=== PATIENT | female | born 1945 | race Caucasian/White ===

== ENCOUNTER 2017-09-15 17:11 | Inpatient (IN) ==
[2017-09-15] MEDS ORDERED: methylPREDNISolone SOD SUC 125 MG/2 ML VIAL IV STA (17:51)
[2017-09-15] MEDS ORDERED: MAGNESIUM SULF RIDER 2 GM in PREMIX 1 EACH IV STA (17:51)
[2017-09-15 18:08] LABS: Lactic Acid 1.2 MMOL/L (0.4-2.0)
[2017-09-15] MEDS ORDERED: FUROSEMIDE 100 MG/10 ML VIAL IV STA (18:08)
[2017-09-15 18:13] LABS: Ammonia < 10 UMOL/L (11-32)
[2017-09-15 18:18] LABS: Basophils % 0.1 % (0.0-0.8); Eosinophils % 0.1 % (0.00-10.9); Hematocrit 37.8 VOL% (35.7-47.0); Hemoglobin 12.5 GM/DL (12.0-16.0); Immature Granulocytes % 0.5 %; Immature Granulocytes Absolute 0.05 #; Lymphocytes # 0.3 10*3/uL (1.4-4.0); Lymphocytes % 3.6 % (21.3-54.2); Mean Corpuscular HGB Conc 33.1 GM/DL (32-36); Mean Corpuscular Hemoglobin 32 PG (27-34); Mean Corpuscular Volume 96.9 FL (87-102); Mean Platelet Volume 11.3 FL (9.6-12.0); Monocytes # 0.4 10*3/uL (0.11-0.8); Monocytes % 3.8 % (1.7-12.7); Neutrophils # 8.7 10*3/uL (1.4-7.4); Neutrophils % 91.9 % (38.7-73.9); Platelet Count 215 T/CUMM (130-400); Red Cell Distribution Width 13.3 % (9.3-17.3); White Blood Count 9.5 T/CUMM (4-12)
[2017-09-15] MEDS: ALBUTEROL/IPRATROPIUM 3 ML NEB RESP TX SCH (18:26)
[2017-09-15 18:32] LABS: INR 0.9
[2017-09-15 18:35] LABS: Alanine Aminotransferase 33 U/L (13-56); Albumin 3.1 G/DL (3.4-5.0); Alkaline Phosphatase 123 U/L (45-117); Aspartate Amino Transferase 38 U/L (0-37); Blood Urea Nitrogen 63 MG/DL (7-18); Calcium 8.8 MG/DL (8.5-10.1); Glucose 124 MG/DL (74-106); Osmolality,Calculated 286.2 MOS/KG (273-304); Sodium 134 MMOL/L (136-145); Total Protein 7.3 G/DL (6.4-8.3); Troponin I Only < 0.015 NG/ML (0.00-0.045)
[2017-09-15 18:37] LABS: ABG Base Excess -5.9 MMOL/L (-2.5-2.5); ABG HCO3 19.6 MMOL/L (20-26); ABG Oxygen Saturation 95.8 % (95-100); ABG PH 7.337 (7.35-7.45); ABG PO2 79.5 MM HG (80-95); ABG TCO2 17.2 MMOL/L (23-27); Allen Test Positive
[2017-09-15 18:42] LABS: Potassium 7.1 MMOL/L (3.5-5.1)
[2017-09-15 19:01] LABS: Apearance,Urine CLEAR (Clear); Bilirubin,Urine Negative (Negative); Blood, Urine Negative (Negative); Glucose,Urine (UA) Negative (Negative); Ketones,Urine Negative (Negative); Mucus,Urine Occasional /LPF (Occasional); Nitrite,Urine Negative (Negative); Protein,Urine 30 MG/DL; RBC,Urine 2 /HPF (0-4); Squamous Epithelial Cell,Urine Occasional /HPF (0-10); Urine Color Straw (Yellow); Urine Specific Gravity 1.006 (1.001-1.035); Urine Urobilinogen < 2.0 EU/DL (0.2-1.0); WBC,Urine 12 /HPF (0-6)
[2017-09-15 19:07] LABS: Lymphocytes 3 % (20-55); Platelet Estimate Normal; Segmented Neutrophils 95 % (50-85); Total Cells Counted 100
[2017-09-15] MEDS ORDERED: NITROGLYCERIN DRIP 50 MG/250 ML BOTTLE IV PRN (22:27)
[2017-09-15] MEDS ORDERED: SODIUM POLYSTYRENE SULFATE 15 GM/60 ML BOTTLE RECTAL ONE (22:27)
[2017-09-15] MEDS ORDERED: ONDANSETRON 4 MG/2 ML VIAL IV PRN (22:27)
[2017-09-15] MEDS ORDERED: PROMETHAZINE 25 MG/1 ML VIAL IM PRN (22:27)
[2017-09-15] MEDS ORDERED: CALCIUM GLUCONATE 1,000 MG in SODIUM CHLORIDE 0.9% 100 ML IV ONE (23:28)
[2017-09-15] MEDS ORDERED: DEXTROSE 50% 25 GM/50 ML VIAL IV PRN (23:35)
[2017-09-15] MEDS ORDERED: GLUCAGON 1 MG VIAL IM PRN (23:35)
[2017-09-15] MEDS: DOCUSATE SODIUM 100 MG CAPSULE PO SCH (23:40)
[2017-09-15] MEDS: cefTRIAXone 1,000 MG in SYRINGE 1 EACH IV SCH (23:41)
[2017-09-15] MEDS: ENOXAPARIN 30 MG/0.3 ML SYRINGE SUBCUT SCH (23:41)
[2017-09-16] MEDS ORDERED: METOPROLOL TARTRATE 5 MG/5 ML VIAL IV SCH
[2017-09-16] MEDS: MORPHINE 4 MG/1 ML VIAL IV PRN (03:00)
[2017-09-16 04:46] LABS: Allen Test Positive; Pt O2 Delivery Device BIPAP
[2017-09-16 04:47] LABS: ABG Base Excess -5.4 MMOL/L (-2.5-2.5); ABG HCO3 18.7 MMOL/L (20-26); ABG Oxygen Saturation 95.4 % (95-100); ABG PH 7.385 (7.35-7.45); ABG PO2 81.4 MM HG (80-95); ABG TCO2 19.7 MMOL/L (23-27)
[2017-09-16 06:04] LABS: Calcium 8.7 MG/DL (8.5-10.1); Osmolality,Calculated 303.5 MOS/KG (273-304); Risk Ratio 2.91; VLDL CHOLESTEROL 11.4 MG/DL
[2017-09-16 06:07] LABS: Potassium 6.6 MMOL/L (3.5-5.1)
[2017-09-16] MEDS ORDERED: SODIUM POLYSTYRENE SULFATE 15 GM/60 ML BOTTLE PO ONE (06:28)
[2017-09-16] MEDS: INSULIN REGULAR 100 UNIT/ML SUBCUT SCH ×4 (07:50→22:31)
[2017-09-16] MEDS ORDERED: FUROSEMIDE 40 MG/4 ML VIAL IV SCH (08:00)
[2017-09-16] MEDS ORDERED: SODIUM BICARBONATE 50 MEQ/50 ML SYRINGE IV ONE (08:43)
[2017-09-16] MEDS: DOCUSATE SODIUM 100 MG CAPSULE PO SCH ×2 (09:10→21:12)
[2017-09-16] MEDS: METOPROLOL TARTRATE 100 MG TABLET PO SCH ×2 (09:10→21:12)
[2017-09-16] MEDS: PANTOPRAZOLE 40 MG VIAL IV SCH (09:17)
[2017-09-16] MEDS: cefTRIAXone 1,000 MG in SYRINGE 1 EACH IV SCH ×2 (11:40→21:54)
[2017-09-16 12:28] LABS: ABG Base Excess -4.2 MMOL/L (-2.5-2.5); ABG HCO3 20.9 MMOL/L (20-26); ABG Oxygen Saturation 97.1 % (95-100); ABG PCO2 31.5 MM HG (35-48); ABG PH 7.403 (7.35-7.45); ABG PO2 87.6 MM HG (80-95); ABG TCO2 17.6 MMOL/L (23-27)
[2017-09-16] MEDS: SODIUM CHLORIDE 0.9% 1,000 ML IV SCH ×3 (14:30→22:00)
[2017-09-16] MEDS: methylPREDNISolone SOD SUC 40 MG/1 ML VIAL IV SCH (15:55)
[2017-09-16] MEDS: SODIUM BICARBONATE 650 MG TABLET PO SCH ×2 (16:00→21:12)
[2017-09-16] MEDS: METOPROLOL TARTRATE 5 MG/5 ML VIAL IV PRN (17:37)
[2017-09-16] MEDS: ALBUTEROL/IPRATROPIUM 3 ML NEB RESP TX SCH (19:35)
[2017-09-16] MEDS: ENOXAPARIN 30 MG/0.3 ML SYRINGE SUBCUT SCH (21:12)
[2017-09-17] MEDS: ALBUTEROL/IPRATROPIUM 3 ML NEB RESP TX SCH ×4 (01:04→19:36)
[2017-09-17] MEDS: methylPREDNISolone SOD SUC 40 MG/1 ML VIAL IV SCH ×2 (03:30→14:01)
[2017-09-17] MEDS: SODIUM CHLORIDE 0.9% 1,000 ML IV SCH ×5 (04:19→23:10)
[2017-09-17 04:58] LABS: Basophils % 0.1 % (0.0-0.8); Hematocrit 32.2 VOL% (35.7-47.0); Hemoglobin 10.7 GM/DL (12.0-16.0); Immature Granulocytes % 0.4 %; Immature Granulocytes Absolute 0.04 #; Lymphocytes # 0.6 10*3/uL (1.4-4.0); Lymphocytes % 5.5 % (21.3-54.2); Mean Corpuscular HGB Conc 33.2 GM/DL (32-36); Mean Corpuscular Hemoglobin 31 PG (27-34); Mean Corpuscular Volume 94.2 FL (87-102); Mean Platelet Volume 10.7 FL (9.6-12.0); Monocytes # 0.6 10*3/uL (0.11-0.8); Monocytes % 5.8 % (1.7-12.7); Neutrophils # 9.2 10*3/uL (1.4-7.4); Neutrophils % 88.2 % (38.7-73.9); Platelet Count 222 T/CUMM (130-400); Red Blood Count 3.42 MC/CUMM (3.8-5.5); Red Cell Distribution Width 13.4 % (9.3-17.3); White Blood Count 10.5 T/CUMM (4-12)
[2017-09-17 05:35] LABS: Calcium 7.2 MG/DL (8.5-10.1); Osmolality,Calculated 306.4 MOS/KG (273-304); Potassium 5.3 MMOL/L (3.5-5.1)
[2017-09-17] MEDS: INSULIN REGULAR 100 UNIT/ML SUBCUT SCH ×4 (07:33→20:43)
[2017-09-17] MEDS: METOPROLOL TARTRATE 100 MG TABLET PO SCH ×2 (08:41→20:48)
[2017-09-17] MEDS: PANTOPRAZOLE 40 MG VIAL IV SCH (08:41)
[2017-09-17] MEDS: SODIUM BICARBONATE 650 MG TABLET PO SCH ×3 (08:41→20:45)
[2017-09-17] MEDS: DOCUSATE SODIUM 100 MG CAPSULE PO SCH ×2 (08:41→20:45)
[2017-09-17] MEDS ORDERED: GLUCAGON 1 MG VIAL IM PRN (10:41)
[2017-09-17] MEDS ORDERED: DEXTROSE 50% 25 GM/50 ML VIAL IV PRN (10:41)
[2017-09-17] MEDS: cefTRIAXone 1,000 MG in SYRINGE 1 EACH IV SCH (10:55)
[2017-09-17] MEDS ORDERED: cefTRIAXone 1,000 MG in SYRINGE 1 EACH IV SCH (11:00)
[2017-09-17] MEDS: COLCHICINE 0.6 MG TABLET PO SCH (11:10)
[2017-09-17] MEDS: LORazepam 1 MG TABLET PO PRN ×2 (11:10→20:46)
[2017-09-17] MEDS: METOPROLOL TARTRATE 5 MG/5 ML VIAL IV PRN (12:32)
[2017-09-17] MEDS: ZIPRASIDONE 20 MG/1 ML VIAL IM PRN (15:25)
[2017-09-17] MEDS: ENOXAPARIN 30 MG/0.3 ML SYRINGE SUBCUT SCH (20:46)
[2017-09-17] MEDS: hydrALAZINE 25 MG TABLET PO SCH (20:46)
[2017-09-17] MEDS: BUDESONIDE/FORMOTEROL 160-4.5 INHALER 6 GM INH SCH (23:10)
[2017-09-18] MEDS: ALBUTEROL/IPRATROPIUM 3 ML NEB RESP TX SCH ×4 (00:34→19:46)
[2017-09-18] MEDS: methylPREDNISolone SOD SUC 40 MG/1 ML VIAL IV SCH ×2 (02:04→14:03)
[2017-09-18] MEDS: LORazepam 1 MG TABLET PO PRN ×3 (03:27→22:44)
[2017-09-18 04:42] LABS: Basophils % 0.1 % (0.0-0.8); Eosinophils % 0.2 % (0.00-10.9); Hemoglobin 11.7 GM/DL (12.0-16.0); Immature Granulocytes % 0.8 %; Immature Granulocytes Absolute 0.11 #; Lymphocytes # 0.2 10*3/uL (1.4-4.0); Lymphocytes % 1.2 % (21.3-54.2); Mean Corpuscular Hemoglobin 24 PG (27-34); Mean Corpuscular Volume 79.6 FL (87-102); Monocytes # 0.3 10*3/uL (0.11-0.8); Monocytes % 2.2 % (1.7-12.7); Neutrophils # 13.4 10*3/uL (1.4-7.4); Neutrophils % 95.5 % (38.7-73.9); Platelet Count 134 T/CUMM (130-400); Red Cell Distribution Width 20.3 % (9.3-17.3)
[2017-09-18 05:15] LABS: Calcium 7.7 MG/DL (8.5-10.1); Osmolality,Calculated 322.4 MOS/KG (273-304); Potassium 4.5 MMOL/L (3.5-5.1)
[2017-09-18 05:53] LABS: Lymphocytes 2 % (20-55); Segmented Neutrophils 96 % (50-85); Total Cells Counted 100
[2017-09-18 05:54] LABS: Hypochromasia 1+; Microcytosis 1+; Platelet Estimate Adequate
[2017-09-18] MEDS: INSULIN REGULAR 100 UNIT/ML SUBCUT SCH ×4 (08:07→20:33)
[2017-09-18] MEDS: DOCUSATE SODIUM 100 MG CAPSULE PO SCH ×2 (08:49→20:17)
[2017-09-18] MEDS: DIPHENOXYLATE/ATROPINE 2.5-0.025 MG TABLET PO SCH (08:50)
[2017-09-18] MEDS: COLCHICINE 0.6 MG TABLET PO SCH (08:50)
[2017-09-18] MEDS: PANTOPRAZOLE 40 MG VIAL IV SCH (08:50)
[2017-09-18] MEDS: ESCITALOPRAM 10 MG TABLET PO SCH (08:50)
[2017-09-18] MEDS: METOPROLOL TARTRATE 100 MG TABLET PO SCH (08:50)
[2017-09-18] MEDS: hydrALAZINE 25 MG TABLET PO SCH ×2 (08:50→20:18)
[2017-09-18] MEDS: SODIUM CHLORIDE 0.9% 1,000 ML IV SCH ×3 (08:52→14:06)
[2017-09-18] MEDS: SODIUM BICARBONATE 650 MG TABLET PO SCH ×3 (09:41→20:18)
[2017-09-18] MEDS: APIXABAN 2.5 MG TABLET PO SCH ×2 (10:39→20:18)
[2017-09-18] MEDS: BUDESONIDE/FORMOTEROL 160-4.5 INHALER 6 GM INH SCH ×2 (10:42→20:18)
[2017-09-18] MEDS: ZIPRASIDONE 20 MG/1 ML VIAL IM PRN (12:13)
[2017-09-19] MEDS: ALBUTEROL/IPRATROPIUM 3 ML NEB RESP TX SCH ×4 (00:06→19:23)
[2017-09-19] MEDS: methylPREDNISolone SOD SUC 40 MG/1 ML VIAL IV SCH (02:14)
[2017-09-19] MEDS ORDERED: ALBUTEROL 2.5 MG/3 ML NEB RESP TX PRN (02:54)
[2017-09-19] MEDS: SODIUM CHLORIDE 0.9% 1,000 ML IV SCH ×2 (03:04→06:40)
[2017-09-19] MEDS: MORPHINE 4 MG/1 ML VIAL IV PRN ×2 (03:54→18:44)
[2017-09-19 05:08] LABS: Basophils % 0.1 % (0.0-0.8); Hematocrit 36.8 VOL% (35.7-47.0); Hemoglobin 12.4 GM/DL (12.0-16.0); Immature Granulocytes % 1.6 %; Immature Granulocytes Absolute 0.14 #; Lymphocytes # 0.3 10*3/uL (1.4-4.0); Lymphocytes % 3.6 % (21.3-54.2); Mean Corpuscular HGB Conc 33.7 GM/DL (32-36); Mean Corpuscular Hemoglobin 32 PG (27-34); Mean Corpuscular Volume 95.8 FL (87-102); Mean Platelet Volume 10.7 FL (9.6-12.0); Monocytes % 11.6 % (1.7-12.7); Neutrophils # 7.4 10*3/uL (1.4-7.4); Neutrophils % 83.1 % (38.7-73.9); Platelet Count 240 T/CUMM (130-400); Red Blood Count 3.84 MC/CUMM (3.8-5.5); Red Cell Distribution Width 13.6 % (9.3-17.3); White Blood Count 8.9 T/CUMM (4-12)
[2017-09-19 05:36] LABS: Calcium 6.9 MG/DL (8.5-10.1); Osmolality,Calculated 319.1 MOS/KG (273-304); Potassium 5.4 MMOL/L (3.5-5.1)
[2017-09-19 05:41] LABS: Giant Platelets Few; Hypochromasia 1+; Lymphocytes 3 % (20-55); Microcytosis Slight; Platelet Estimate Adequate; Segmented Neutrophils 83 % (50-85); Total Cells Counted 100
[2017-09-19] MEDS: INSULIN REGULAR 100 UNIT/ML SUBCUT SCH ×4 (08:16→21:20)
[2017-09-19] MEDS: APIXABAN 2.5 MG TABLET PO SCH ×2 (08:36→21:21)
[2017-09-19] MEDS: hydrALAZINE 25 MG TABLET PO SCH ×3 (08:36→21:20)
[2017-09-19] MEDS: COLCHICINE 0.6 MG TABLET PO SCH (08:36)
[2017-09-19] MEDS: NEBIVOLOL 10 MG TABLET PO SCH (08:36)
[2017-09-19] MEDS: ESCITALOPRAM 10 MG TABLET PO SCH (08:36)
[2017-09-19] MEDS: DOCUSATE SODIUM 100 MG CAPSULE PO SCH ×2 (08:36→21:20)
[2017-09-19] MEDS: DIPHENOXYLATE/ATROPINE 2.5-0.025 MG TABLET PO SCH (08:37)
[2017-09-19] MEDS: ZIPRASIDONE 20 MG/1 ML VIAL IM PRN ×2 (08:37→21:10)
[2017-09-19] MEDS: PANTOPRAZOLE 40 MG VIAL IV SCH (08:37)
[2017-09-19] MEDS: SODIUM BICARBONATE 650 MG TABLET PO SCH ×3 (08:37→21:20)
[2017-09-19] MEDS: BUDESONIDE/FORMOTEROL 160-4.5 INHALER 6 GM INH SCH ×2 (08:39→21:20)
[2017-09-20] MEDS: ALBUTEROL/IPRATROPIUM 3 ML NEB RESP TX SCH ×2 (00:25→07:35)
[2017-09-20] MEDS: SODIUM CHLORIDE 0.9% 1,000 ML IV SCH ×3 (02:26→02:27)
[2017-09-20] MEDS ORDERED: FUROSEMIDE 40 MG/4 ML VIAL IV ONE (06:30)
[2017-09-20] MEDS: INSULIN REGULAR 100 UNIT/ML SUBCUT SCH ×2 (08:14→11:32)
[2017-09-20] MEDS ORDERED: methylPREDNISolone SOD SUC 40 MG/1 ML VIAL IV SCH (09:00)
[2017-09-20] MEDS: hydrALAZINE 25 MG TABLET PO SCH (09:07)
[2017-09-20] MEDS: SODIUM BICARBONATE 650 MG TABLET PO SCH (09:08)
[2017-09-20] MEDS: ESCITALOPRAM 10 MG TABLET PO SCH (09:08)
[2017-09-20] MEDS: DIPHENOXYLATE/ATROPINE 2.5-0.025 MG TABLET PO SCH (09:08)
[2017-09-20] MEDS: DOCUSATE SODIUM 100 MG CAPSULE PO SCH (09:08)
[2017-09-20] MEDS: NEBIVOLOL 10 MG TABLET PO SCH (09:08)
[2017-09-20] MEDS: COLCHICINE 0.6 MG TABLET PO SCH (09:08)
[2017-09-20] MEDS: APIXABAN 2.5 MG TABLET PO SCH (09:08)
[2017-09-20] MEDS: BUDESONIDE/FORMOTEROL 160-4.5 INHALER 6 GM INH SCH (09:09)
[2017-09-20] MEDS: MORPHINE 4 MG/1 ML VIAL IV PRN (09:43)
[2017-09-20] MEDS: PANTOPRAZOLE 40 MG VIAL IV SCH (09:44)
[2017-09-20 11:59] VITALS: BP 167/93
== END 2017-09-20 12:46 | DRG 291 ==
LOC: EDUNIT# → EDBD → N.ED 17:11 → N.EDINP 20:08 → N.ICU 22:00 → N.2E 09-17 13:09